=== PATIENT | male | born 2000 | race Caucasian/White ===

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

== ENCOUNTER 2022-10-23 22:04 | Emergency (ER) | payer OTHER ==
[2022-10-23 22:10] VITALS: BP 135/79; PULSE 62; RESP 19; TEMP 98.2; BMI 34.3
[2022-10-23] MEDS ORDERED: IBUPROFEN 600 MG TABLET (FP) PO ONE ×2 (22:20→22:25)
== END 2022-10-23 22:28 | disposition home or self-care (01) ==
LOC: JERFT 22:04
DX: K08.89 Other specified disorders of teeth and supporting structures (principal)
CPT/HCPCS: 99283-25